=== PATIENT | male | born 1945 | race Caucasian/White ===

== ENCOUNTER 2022-08-12 09:48 | Outpatient (CLI) | payer MEDICARE, BC | END 2022-08-12 09:49 | disposition home or self-care (01) | LOC: CSHCT 09:48 | PROVIDERS: ATTEND Otolaryngology Plastic Surgery within the Head & Neck | DX: H90.3 Sensorineural hearing loss, bilateral (principal); J34.89 Other specified disorders of nose and nasal sinuses; H74.8X1 Other specified disorders of right middle ear and mastoid | CPT/HCPCS: 70480 ==

== ENCOUNTER → 2023-04-03 | Day surgery (SDC) | payer MEDICARE, BC ==
[2023-04-02 11:49] VITALS: BMI 38.6
[~2023-04-03] MED LIST: Dexamethasone 20 MG/5 ML VIAL ONE; EPINEPHrine 1 MG/ML VIAL ONE; Fentanyl 250 MCG/5 ML VIAL ONE; Ketorolac Tromethamine 30 MG/ML VIAL ONE; Lidocaine 1% PF 5 ML VIAL ONE; Lidocaine 1% w/Epinephrine 1:100K 20 ML VIAL ONE; Midazolam HCl 2 mg/2 ml Vial ONE; Mupirocin 2% Ointment 22 GM Tube ONE; Ondansetron PF 4 MG/2 ML Vial ONE; PHENYLEPHRINE-NS 100 MCG/ML 10 ML SYRINGE ONE; PROPOFOL 0 ML ONE; Rocuronium Bromide 10 MG/ML (10ML VIAL) ONE
[2023-04-03 07:29] LABS: Hematocrit 45.1 % (38.8-50.0); Hemoglobin 14.9 g/dL (13.5-17.5)
[2023-04-03 07:35] LABS: Anion Gap 16 mmol/L (10-20); BUN (Urea Nitrogen) 15 mg/dL (8.4-25.7); Calc. Creatinine Clearance 129 mL/min (70-130); Calcium 9.3 mg/dL (7.8-10.44); Carbon Dioxide 26 mmol/L (23-31); Chloride 104 mmol/L (98-107); Estimated GFR 89; Glucose 127 mg/dL (83-110); Potassium 3.6 mmol/L (3.5-5.1); Sodium 142 mmol/L (136-145)
== END ==
LOC: CSHSDC 05:30
PROVIDERS: ATTEND Otolaryngology Plastic Surgery within the Head & Neck
DX: H90.3 Sensorineural hearing loss, bilateral (principal); H69.83 Other specified disorders of Eustachian tube, bilateral; J30.9 Allergic rhinitis, unspecified; J34.3 Hypertrophy of nasal turbinates; H26.9 Unspecified cataract; E11.9 Type 2 diabetes mellitus without complications; F17.210 Nicotine dependence, cigarettes, uncomplicated; I25.10 Atherosclerotic heart disease of native coronary artery without angina pectoris; E78.5 Hyperlipidemia, unspecified; I10 Essential (primary) hypertension; Z53.9 Procedure and treatment not carried out, unspecified reason; G47.33 Obstructive sleep apnea (adult) (pediatric); Z79.899 Other long term (current) drug therapy; Z98.890 Other specified postprocedural states
CPT/HCPCS: 80048; 85014; 85018; 93005; J0171; 36415; 93010; J1100; J1885; J2250; J2405; J2704; J3010; Q9968

== ENCOUNTER 2023-06-01 08:53 | Day surgery (SDC) | payer MEDICARE, BC ==
[2023-05-28 14:46] VITALS: BMI 39.3
[2023-06-01] MEDS ORDERED: Phenylephrine 40 MG/NS 250 ML 250 ML ONE (12:14)
[2023-06-01] MEDS ORDERED: EPINEPHrine 1 MG/ML VIAL ONE (12:16)
[2023-06-01] MEDS ORDERED: CEFAZOLIN 2 GM VIAL ONE (12:16)
[2023-06-01] MEDS ORDERED: Mupirocin 2% Ointment 22 GM Tube ONE (12:16)
[2023-06-01] MEDS ORDERED: oFLOXacin 0.3% Opth 5 ML BOT ONE (12:16)
[2023-06-01] MEDS ORDERED: Lidocaine 1% PF 5 ML VIAL ONE (12:17)
[2023-06-01] MEDS ORDERED: Rocuronium Bromide 10 MG/ML (10ML VIAL) ONE (12:17)
[2023-06-01] MEDS ORDERED: Midazolam HCl 2 mg/2 ml Vial ONE (12:17)
[2023-06-01] MEDS ORDERED: Fentanyl 250 MCG/5 ML VIAL ONE (12:17)
[2023-06-01] MEDS ORDERED: PROPOFOL 20 ML ONE (12:17)
[2023-06-01] MEDS ORDERED: Dexamethasone 20 MG/5 ML VIAL ONE (12:17)
[2023-06-01] MEDS ORDERED: Ondansetron PF 4 MG/2 ML Vial ONE (12:17)
[2023-06-01] MEDS ORDERED: Lidocaine 1% w/Epinephrine 1:100K 20 ML VIAL ONE (12:58)
[2023-06-01] MEDS ORDERED: HYDROcodone/Acetaminophen 5/325 mg Tablet ONE (15:45)
== END 2023-06-01 17:00 | disposition home or self-care (01) ==
LOC: CSHSDC 08:53
PROVIDERS: ATTEND Otolaryngology Plastic Surgery within the Head & Neck
PROC: F0BZ09Z Cochlear Implant Rehabilitation Treatment using Cochlear Implant Equipment (ICD-10-PCS; principal; 2023-06-01)
DX: H90.3 Sensorineural hearing loss, bilateral (principal); H69.83 Other specified disorders of Eustachian tube, bilateral; J30.9 Allergic rhinitis, unspecified; J34.3 Hypertrophy of nasal turbinates; F17.210 Nicotine dependence, cigarettes, uncomplicated; E11.9 Type 2 diabetes mellitus without complications; I25.10 Atherosclerotic heart disease of native coronary artery without angina pectoris; I10 Essential (primary) hypertension; G47.33 Obstructive sleep apnea (adult) (pediatric); E03.9 Hypothyroidism, unspecified; F10.90 Alcohol use, unspecified, uncomplicated; E66.01 Morbid (severe) obesity due to excess calories; Z68.39 Body mass index [BMI] 39.0-39.9, adult; Z90.89 Acquired absence of other organs; Z79.890 Hormone replacement therapy; Z79.4 Long term (current) use of insulin; Z79.84 Long term (current) use of oral hypoglycemic drugs; Z79.899 Other long term (current) drug therapy
CPT/HCPCS: 69930; 70250; J0171; L8614 ×2; Q9968; J1100; J2250; J2405; J2704; J3010